=== PATIENT | male | born 1985 | race Caucasian/White ===

== ENCOUNTER 2020-01-08 09:01 | Emergency (ER) | payer OTHER ==
--- NOTE | 2020-01-08 09:21 | EDM.PDOC ---
ED HPI GENERAL MEDICAL PROBLEM - General Chief Complaint: Respiratory Problem Stated Complaint: TROUBLE BREATHING Time Seen by Provider: 01/08/20 09:03 Source of Information: Reports: Patient History Limitations: Reports: No Limitations - History of Present Illness INITIAL COMMENTS - FREE TEXT/NARRATIVE: Jcarlos is a 34-year-old male presenting to the ED for evaluation of increasing shortness of breath, nausea and vomiting, and body aches including back pain. The patient works at [employer] and tested positive for COVID-19 last . He has been home in isolation but developed increasing shortness of breath prompting him to come in for evaluation. 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 Patient tested positive for COVID-19 last (7 days ago).) Associated Symptoms: Reports: Fever/Chills, Headaches, Loss of Appetite, Malaise, Nausea/Vomiting, Shortness of Breath, Weakness Treatments ACETYLENE CUTTER: Reports: Acetaminophen Headache Pain Score (Numeric/FACES): 6 - Related Data Allergies Allergy/AdvReac Type Severity Reaction Status Date / Time No Known Allergies Allergy Verified 01/08/20 09:22 Home Meds: Home Meds Metoclopramide HCl [Reglan] 10 mg PO Q6HR PRN 5 Days #20 tablet 01/08/20 [Rx] amLODIPine [Norvasc] 10 mg PO DAILY 01/08/20 [History] atorvaSTATin [Lipitor] 10 mg PO BEDTIME 01/08/20 [History] lisinopriL [Lisinopril] 5 mg PO DAILY 01/08/20 [History] ED ROS GENERAL - Review of Systems Review Of Systems: See Below Constitutional: Reports: Fever, Chills, Malaise, Weakness, Fatigue, Decreased Appetite HEENT: Reports: No Symptoms Respiratory: Reports: Shortness of Breath, Cough Cardiovascular: Reports: Palpitations Endocrine: Reports: Fatigue GI/Abdominal: Reports: Anorexia, Nausea, Vomiting : Reports: No Symptoms Musculoskeletal: Reports: Back Pain, Muscle Pain Skin: Reports: No Symptoms Neurological: Reports: Headache Psychiatric: Reports: No Symptoms Hematologic/Lymphatic: Reports: No Symptoms Immunologic: Reports: No Symptoms ED EXAM, GENERAL - Physical Exam Exam: See Below Exam Limited By: No Limitations General Appearance: Alert, Anxious, Moderate Distress Eye Exam: Bilateral Eye: EOMI, PERRL Nose: Nasal Swelling, Clear Rhinorrhea Throat/Mouth: Normal Lips, Normal Oropharynx, Normal Voice, Other (Dry mucous membranes) Head: Atraumatic, Normocephalic Neck: Normal Inspection, Supple, Non-Tender, Full Range of Motion. No: Lymphadenopathy (R), Lymphadenopathy (L) Respiratory/Chest: No Respiratory Distress, Lungs Clear, Normal Breath Sounds, No Accessory Muscle Use, Chest Non-Tender Cardiovascular: Normal Peripheral Pulses, No Edema, No JVD, No Murmur, Tachycardia Peripheral Pulses: 2+: Radial (L), Radial (R) GI/Abdominal: Soft, Non-Tender, No Distention, Abnormal Bowel Sounds (Decreased bowel sounds). No: Guarding, Rebound Back Exam: Normal Inspection, Full Range of Motion, NT Extremities: Normal Inspection, Normal Range of Motion, Non-Tender, Normal Capillary Refill, No Pedal Edema Neurological: Alert, Oriented, CN II-XII Intact, Normal Cognition, No Motor /Sensory Deficits Psychiatric: Normal Affect, Anxious Skin Exam: Warm, Dry, Intact, Normal Color Lymphatic: No Adenopathy Course - Vital Signs Last Recorded V/S: Last Vital Signs Temp 37.5 C 01/08/20 12:46 Pulse 80 01/08/20 10:54 Resp 16 01/08/20 10:54 BP 114/67 01/08/20 10:54 Pulse Ox 94 L 01/08/20 10:54 Orthostatic Blood Pressure [ 106/61 Standing] Orthostatic Blood Pressure [ 126/68 Sitting] Orthostatic Blood Pressure [ 122/67 Supine] - Orders/Labs/Meds Orders: Active Orders 24 hr Category Date Time Status CULTURE BLOOD [BC] Urgent Lab 01/08/20 09:33 Received CULTURE BLOOD [BC] Urgent Lab 01/08/20 09:33 Received Sodium Chloride 0.9% [Saline Flush] Med 01/08/20 09:24 Active 10 ml FLUSH ASDIRECTED PRN Blood Culture x2 Reflex Set [OM.PC] Urgent Oth 01/08/20 09:24 Ordered Saline Lock Insert [OM.PC] Routine Oth 01/08/20 09:24 Ordered Medication Orders Sodium Chloride (Saline Flush) 10 ml FLUSH ASDIRECTED PRN PRN Reason: Keep Vein Open Last Admin: 01/08/20 09:55 Dose: 10 ml Documented by: ISAK Labs: Laboratory Tests 01/08/20 01/08/20 01/08/20 Range/Units 09:37 09:37 10:14 WBC 6.8 (4.5-11.0) K/uL RBC 5.08 (4.30-5.90) M/uL Hgb 13.9 (12.0-15.0) g/dL Hct 42.8 (40.0-54.0) % MCV 84 (80-98) fL MCH 27 (27-31) pg MCHC 33 (32-36) % Plt Count 194 (150-400) K/uL Neut % (Auto) 69 H (36-66) % Lymph % (Auto) 15 L (24-44) % [place] % (Auto) 16 H (2-6) % Eos % (Auto) 0 L (2-4) % Baso % (Auto) 0 (0-1) % D-Dimer, Quantitative (0.0-400.0) ng/mL Sodium 133 L (140-148) mmol/L Potassium 4.7 (3.6-5.2) mmol/L Chloride 98 L (100-108) mmol/L Carbon Dioxide 25 (21-32) mmol/L Anion Gap 14.7 H (5.0-14.0) mmol/L BUN 20 H (7-18) mg/dL Creatinine 2.7 H (0.8-1.3) mg/dL Est Cr Clr Drug Dosing 39.80 mL/min Estimated GFR (MDRD) 27 L (>60) Glucose 114 H (74-106) mg/dL Lactic Acid 1.3 (0.4-2.0) mmol/L Calcium 9.1 (8.5-10.1) mg/dL Total Bilirubin 0.6 (0.2-1.0) mg/dL AST 28 (15-37) U/L ALT 65 (12-78) U/L Alkaline Phosphatase 85 (46-116) U/L C-Reactive Protein 1.94 H (0.0-0.3) mg/dL Total Protein 7.9 (6.4-8.2) g/dL Albumin 4.0 (3.4-5.0) g/dL Globulin 3.9 H (2.3-3.5) g/dL Albumin/Globulin Ratio 1.0 L (1.2-2.2) Urine Color (YELLOW) Urine Appearance (CLEAR) Urine pH (5.0-8.0) Ur Specific [place] (1.008-1.030) Urine Protein (NEGATIVE) mg/dL Urine Glucose (UA) (NEGATIVE) mg/dL Urine Ketones (NEGATIVE) mg/dL Urine Occult Blood (NEGATIVE) Urine Nitrite (NEGATIVE) Urine Bilirubin (NEGATIVE) Urine Urobilinogen (0.2-1.0) EU/dL Ur Leukocyte Esterase (NEGATIVE) Urine RBC (0-5) Urine WBC (0-5) Ur Epithelial Cells Amorphous Sediment Urine Bacteria Urine Mucus 01/08/20 01/08/20 01/08/20 Range/Units 10:31 11:07 12:50 WBC (4.5-11.0) K/uL RBC (4.30-5.90) M/uL Hgb (12.0-15.0) g/dL Hct (40.0-54.0) % MCV (80-98) fL MCH (27-31) pg MCHC (32-36) % Plt Count (150-400) K/uL Neut % (Auto) (36-66) % Lymph % (Auto) (24-44) % [place] % (Auto) (2-6) % Eos % (Auto) (2-4) % Baso % (Auto) (0-1) % D-Dimer, Quantitative 102 (0.0-400.0) ng/mL Sodium 138 L (140-148) mmol/L Potassium 4.6 (3.6-5.2) mmol/L Chloride 102 (100-108) mmol/L Carbon Dioxide 24 (21-32) mmol/L Anion Gap 16.6 H (5.0-14.0) mmol/L BUN 20 H (7-18) mg/dL Creatinine 2.0 H (0.8-1.3) mg/dL Est Cr Clr Drug Dosing 53.74 mL/min Estimated GFR (MDRD) 38 L (>60) Glucose 98 (74-106) mg/dL Lactic Acid (0.4-2.0) mmol/L Calcium 8.5 (8.5-10.1) mg/dL Total Bilirubin (0.2-1.0) mg/dL AST (15-37) U/L ALT (12-78) U/L Alkaline Phosphatase (46-116) U/L C-Reactive Protein (0.0-0.3) mg/dL Total Protein (6.4-8.2) g/dL Albumin (3.4-5.0) g/dL Globulin (2.3-3.5) g/dL Albumin/Globulin Ratio (1.2-2.2) Urine Color [place] A (YELLOW) Urine Appearance Turbid A (CLEAR) Urine pH 5.0 (5.0-8.0) Ur Specific [place] >= 1.030 (1.008-1.030) Urine Protein 100 H (NEGATIVE) mg/dL Urine Glucose (UA) Negative (NEGATIVE) mg/dL Urine Ketones Trace H (NEGATIVE) mg/dL Urine Occult Blood Negative (NEGATIVE) Urine Nitrite Negative (NEGATIVE) Urine Bilirubin Moderate H (NEGATIVE) Urine Urobilinogen 0.2 (0.2-1.0) EU/dL Ur Leukocyte Esterase Negative (NEGATIVE) Urine RBC 0-5 (0-5) Urine WBC 0-5 (0-5) Ur Epithelial Cells Moderate Amorphous Sediment Many Urine Bacteria Few Urine Mucus Many Meds: Medications Generic Name Dose Route Start Last Admin Trade Name Freq PRN Reason Stop Dose Admin Sodium Chloride 10 ml 01/08/20 09:24 01/08/20 09:55 Saline Flush FLUSH 10 ml ASDIRECTED PRN Administration Keep Vein Open Discontinued Medications Generic Name Dose Route Start Last Admin Trade Name Freq PRN Reason Stop Dose Admin Sodium Chloride 1,000 mls @ 999 mls/hr 01/08/20 09:25 01/08/20 09:54 Normal Saline IV 01/08/20 10:25 999 mls/hr .BOLUS ONE Administration Sodium Chloride 1,000 mls @ 999 mls/hr 01/08/20 09:26 01/08/20 10:55 Normal Saline IV 01/08/20 10:26 999 mls/hr .BOLUS ONE Administration - Re-Assessments/Exams Free Text/Narrative Re-Assessment/Exam: 01/08/20 10:11 Jcarlos has a significantly elevated creatinine and BUN with a creatinine of 2.7 and a BUN of 20. His calculated GFR is only 27 signifying significant kidney injury. We are aggressively rehydrating the patient per the sepsis guidelines of 15 mL/kg with normal saline. Orthostatic blood pressures were checked and are significant for volume depletion. 01/08/20 10:46 venous lactate returns at 1.3 signifying that this is not likely acute sepsis but rather profound dehydration due to the poor intake and significant vomiting. Will reassess after 2 L of normal saline by repeating the basic metabolic profile. 01/08/20 11:12 D-dimer returns and is normal at 103. Patient is improving after the first liter of normal saline. We did obtain a urine which was quite concentrated and turbid. We will await the results of the UA. Departure - Departure Time of Disposition: 14:50 Disposition: Home, Self-Care 01 Condition: Good Clinical Impression: Acute kidney injury, Severe dehydration Vomiting Qualifiers: Vomiting type: unspecified Vomiting Intractability: intractable Nausea presence: with nausea Qualified Code(s): R11.2 - Nausea with vomiting, unspecified - Discharge Information *PRESCRIPTION DRUG MONITORING PROGRAM REVIEWED*: Not Applicable *COPY OF PRESCRIPTION DRUG MONITORING REPORT IN PATIENT LALITA: Not Applicable Instructions: Nausea and Vomiting, Adult, [id number], Dehydration, Adult Referrals: PCP,None [Primary Care Provider] - Forms: ED Department Discharge Care Plan Goals: Follow-up with Dr. Moe early next week for recheck of your kidney function. In the meantime continue to push fluids. There is a prescription for Reglan to help control your nausea and vomiting. If you become dizzy, lightheaded, short of breath, or weak please return to the ED for reevaluation Sepsis Event Note (ED) - Focused Exam Vital Signs: Vital Signs Temp Pulse Resp BP Pulse Ox 01/08/20 12:46 37.5 C 01/08/20 10:55 37.6 C 01/08/20 10:54 80 16 114/67 94 L 01/08/20 10:24 76 106/61 93 L 01/08/20 09:53 84 92/50 L 01/08/20 09:41 79 18 103/58 L 97 01/08/20 09:17 38.1 C 102 H 18 124/50 L 95 - Problem List & Annotations (1) Acute kidney injury SNOMED Code(s): 61919317, 92340491 Code(s): N17.9 - ACUTE KIDNEY FAILURE, UNSPECIFIED Status: Acute Priority: High Current Visit: Yes (2) Severe dehydration SNOMED Code(s): 020734470 Code(s): E86.0 - DEHYDRATION Status: Acute Priority: High Current Visit: Yes (3) Vomiting SNOMED Code(s): 487597626 Code(s): R11.10 - VOMITING, UNSPECIFIED Status: Acute Priority: High Current Visit: Yes Qualifiers: Vomiting type: unspecified Vomiting Intractability: intractable Nausea presence: with nausea Qualified Code(s): R11.2 - Nausea with vomiting, unspecified - Problem List Review Problem List Initiated/Reviewed/Updated: Yes - My Orders Last 24 Hours: My Active Orders 01/08/20 09:24 Sodium Chloride 0.9% [Saline Flush] 10 ml FLUSH ASDIRECTED PRN Blood Culture x2 Reflex Set [OM.PC] Urgent Saline Lock Insert [OM.PC] Routine 01/08/20 09:33 CULTURE BLOOD [BC] Urgent CULTURE BLOOD [BC] Urgent - Assessment/Plan Last 24 Hours: My Active Orders 01/08/20 09:24 Sodium Chloride 0.9% [Saline Flush] 10 ml FLUSH ASDIRECTED PRN Blood Culture x2 Reflex Set [OM.PC] Urgent Saline Lock Insert [OM.PC] Routine 01/08/20 09:33 CULTURE BLOOD [BC] Urgent CULTURE BLOOD [BC] Urgent Plan: Follow-up early next week with Dr. Moe in the clinic for recheck of your kidney function. Continue to push fluids through the weekend and rest.
[2020-01-08] MEDS ORDERED: Sodium Chloride 0.9% 10 ML Syringe FLUSH PRN (09:24)
[2020-01-08] MEDS ORDERED: Sodium Chloride 0.9% 1,000 ML IV ONE ×2 (09:25→09:26)
--- NOTE | 2020-01-08 10:04 | CR ---
CHEST: Portable 01/08/2020 at 9:45 AM CLINICAL HISTORY: Covid 19 COMPARISON:None FINDINGS: The heart size, pulmonary vascularity and hilar structures are normal. No infiltrate effusion or pneumothorax is seen. IMPRESSION: No acute cardiopulmonary process.
== END 2020-01-08 15:20 | disposition home or self-care (01) ==
LOC: JP.ED 09:01
DX: N17.9 Acute kidney failure, unspecified (principal); E86.0 Dehydration; R11.2 Nausea with vomiting, unspecified; Z79.899 Other long term (current) drug therapy
CPT/HCPCS: 36415; 71045; 80048; 80053; 81001; 83605; 85025; 85379; 86140; 87040; 99285; J7030; 99284